=== PATIENT | female | born 1985 | race Caucasian/White ===

== ENCOUNTER 2018-08-31 11:28 | Outpatient (CLI) | payer BC, MEDICAID ==
[~2018-08-31] VITALS: Ht 165.1 cm; Wt 62.6 kg
[2018-08-31 11:56] VITALS: Ht 165.1 cm; Wt 62.6 kg
[2018-08-31 11:57] VITALS: BP 112/60; PULSE 80; RESP 18
[2018-08-31] MEDS ORDERED: PNV11TAB PO (11:59)
--- NOTE | 2018-08-31 14:24 | PN ---
Triage Information Date/Time Reason for visit: s/p fall two days ago no direct trauma to abdomen Weeks of Gestation 28+ /Para 2/1 Diabetes: none Hypertention: none Objective Vital Signs Date Temp Pulse Resp B/P (MAP) Pulse Ox O2 O2 Flow FiO2 Time Delivery Rate 08/31/18 98.6 80 18 112/60 11:57 (77) Heart Rate: 140's Contractions: None Results/Medications Result Diagram: 08/31/18 1241 Results 24 hrs Laboratory Tests Test 08/31/18 12:25 08/31/18 12:41 Fibronectin NEGATIVE White Blood Count 8.9 Red Blood Count 3.38 L Hemoglobin 10.1 L Hematocrit 30.6 L Mean Corpuscular Volume 90.5 Mean Corpuscular Hemoglobin 29.9 Mean Corpuscular Hemoglobin Concent 33.0 Red Cell Distribution Width 13.7 Platelet Count 132 L Mean Platelet Volume 9.6 Immature Granulocytes % 4.900 H Neutrophils % 68.3 Lymphocytes % 18.1 Monocytes % 5.4 Eosinophils % 2.6 Basophils % 0.7 Nucleated Red Blood Cells % 0.0 Immature Granulocytes # 0.430 H Neutrophils # 6.1 Lymphocytes # 1.6 Monocytes # 0.5 Eosinophils # 0.2 Basophils # 0.1 Nucleated Red Blood Cells # 0.0 Kleihauer-Betke Stain 0.0000 Disposition: Discharge Assessment/Plan labs reviewed ultrasound reviewed Questions answered precautions discussed Follow up with provider PIOTR HESS M.D. Aug 31, 2018 14:24
--- NOTE | 2018-08-31 14:48 | TRIAGE ---
OB Triage Datetime Report Generated by CPN: 08/31/2018 14:47 Datetime: 08/31/2018 14:17 Stage of : OB Triage Datetime: 08/31/2018 14:15 Labor Evaluation Frequency: 0 Monitor Mode: External Pattern: Normal: <= 5 Contractions in 10 Minutes Resting Tone [place]: Relaxed Heart Rate FHR Baseline Rate: 135 Monitor Mode: External US Variability: Moderate 6-25 bpm Decelerations: None Category: Category I Pain Assessment Pain Scale: 0 Pain Presence: None/Denies Pain Type: N/A Pain Goal: 3 Pain Relief Measures: Comfort Measures Datetime: 08/31/2018 12:48 Labor Evaluation Frequency: 0 Monitor Mode: External Pattern: Normal: <= 5 Contractions in 10 Minutes Resting Tone [place]: Relaxed Heart Rate FHR Baseline Rate: 135 Monitor Mode: External US Variability: Moderate 6-25 bpm Accelerations: 10X10 Decelerations: None Category: Category I Pain Assessment Pain Scale: 3 Pain Presence: None/Denies Pain Type: N/A Pain Goal: 3 Pain Relief Measures: Comfort Measures Datetime: 08/31/2018 12:14 Stage of : OB Triage Datetime: 08/31/2018 11:48 Stage of : OB Triage Assessment Type: Triage Maternal Assessment Level of Consciousness: Fully Conscious DTR's/Clonus: DTRs 2+; No Clonus Headache: Denies Blurred Vision: No Respiratory Effort: Unlabored; Regular Rhythm; Equal Expansion Breath Sounds, Left: Clear and Equal Breath Sounds, Right: Clear and Equal Nausea/Vomiting: Denies RUQ Epigastric Pain: Denies Facial Edema: None Temperature Route: Axillary Fall Risk Assessment History of Falling: (0) No Secondary Diagnosis: (0) No Ambulatory Aid: (0) Bedrest/Nurse Assist IV Therapy: (0) No Gait: (0) Normal/Bedrest/Immobile Mental Status: (0) Oriented to Own Ability Fall Score: 0 Fall Risk Score Definition: No Risk: No action required Labor Evaluation Frequency: 0 Monitor Mode: External Pattern: Normal: <= 5 Contractions in 10 Minutes Resting Tone [place]: Relaxed Heart Rate FHR Baseline Rate: 135 Monitor Mode: External US Variability: Moderate 6-25 bpm Accelerations: 10X10 Decelerations: None Category: Category I Pain Assessment Pain Scale: 3 Pain Presence: Intermittent Pain Type: Cramping Pain Location: Back Pain Goal: 3 Pain Relief Measures: Comfort Measures Datetime: 08/31/2018 11:47 EGA: 28.4 Datetime: 08/31/2018 11:46 Time of Arrival: 08/31/2018 11:18 Arrived By: Ambulatory Arrived From: Home Chief Complaint: FELL YESTERDAY, ON LEFT SIDE, PAIN ON LEFT SIDE OF ABDOMEN, DENIES BLEEDING, LEAKI NG OR UC'S Movement: Present Contractions: Denies/Absent Rupture of Membranes: Denies Vaginal Bleeding: None Vaginal Discharge: Denies Recent Sexual Intercouse: Denies Abdominal Trauma: Fall Patient Complaints: Back Pain Time Provider Notified: 08/31/2018 12:14 Provider Notified: elodia Initial Plan: MONITOR,kb, typ/screen, bpp, cbc, cl, ffn
== END 2018-08-31 14:35 | disposition home or self-care (01) ==
LOC: OBT 11:28 → EDBD 11:28 → MERGE 11:28 → L-D 11:30 → OBT 14:35
PROVIDERS: ATTEND Obstetrics & Gynecology
DX: O26.893 Other specified pregnancy related conditions, third trimester (principal); Z3A.28 28 weeks gestation of pregnancy; R10.9 Unspecified abdominal pain
CPT/HCPCS: 76817; 76818; 82731; 85025; 85460; 86850; 86900; 86901; Z7500; G0463

== ENCOUNTER 2018-11-14 03:33 | Inpatient (IN) | payer BC, OTHER ==
[~2018-11-14] VITALS: Ht 167.6 cm; Wt 71.7 kg
[~2018-11-14 03:33] MED LIST: PNV11TAB PO
[2018-11-14 04:04] VITALS: BP 117/68; PULSE 93; RESP 16
[2018-11-14] MEDS ORDERED: CALC600T24 PO (04:07)
[2018-11-14] MEDS ORDERED: FERR134T PO (04:07)
[2018-11-14] MEDS ORDERED: LACTATED RINGER'S 1,000 ML IV PRN (04:26)
[2018-11-14] MEDS ORDERED: MISOPROSTOL 200 MCG TAB PR PRN ×2 (04:30→14:30)
[2018-11-14] MEDS ORDERED: IBUPROFEN 600 MG TAB PO PRN (04:30)
[2018-11-14] MEDS ORDERED: LIDOCAINE 1% (MPF) 30 ML INJ INJ PRN (04:30)
[2018-11-14] MEDS ORDERED: CARBOPROST 250 MCG INJ IM PRN ×2 (04:30→14:30)
[2018-11-14] MEDS ORDERED: BUTORPHANOL 2 MG INJ IV PRN ×2 (04:30)
[2018-11-14] MEDS ORDERED: METHYLERGONOVINE 0.2 MG INJ IM PRN ×2 (04:30→14:30)
[2018-11-14] MEDS ORDERED: OXYTOCIN 30 UNITS/LR 500 ML IV PRN ×2 (04:30→14:30)
[2018-11-14] MEDS ORDERED: OXYTOCIN 30 UNITS/LR 500 ML IV SCH ×3 (04:30→14:04)
[2018-11-14] MEDS ORDERED: AMPICILLIN 2 GM/NS (PMX) 100 ML IV ONE (04:30)
[2018-11-14] MEDS: LACTATED RINGER'S 1,000 ML IV SCH ×2 (05:26→12:22)
--- NOTE | 2018-11-14 06:07 | TRIAGE ---
OB Triage Datetime Report Generated by CPN: 11/14/2018 06:06 Datetime: 11/14/2018 05:55 Stage of : Labor Heart Rate FHR Baseline Rate: 145 Monitor Mode: External US FHR Baseline Changes: No Baseline Change Variability: Moderate 6-25 bpm Accelerations: 15X15 Decelerations: None Category: Category I Membrane Status: Intact Datetime: 11/14/2018 05:37 Assessment Type: Admission Assessment Vaginal Bleeding: None Maternal Assessment Level of Consciousness: Fully Conscious DTR's/Clonus: DTRs 2+; No Clonus Headache: Denies Blurred Vision: No Respiratory Effort: Unlabored; Regular Rhythm; Equal Expansion Breath Sounds, Left: Clear and Equal Breath Sounds, Right: Clear and Equal Nausea/Vomiting: Denies RUQ Epigastric Pain: Denies Lower Extremities Edema: None Degree: None Upper Extremities Edema: None Degree: None Facial Edema: None Fall Risk Assessment History of Falling: (0) No Secondary Diagnosis: (0) No Ambulatory Aid: (0) Bedrest/Nurse Assist Gait: (0) Normal/Bedrest/Immobile Mental Status: (0) Oriented to Own Ability Pain Assessment Pain Scale: 7 Pain Presence: Intermittent Pain Type: Contraction Pain Location: Abdomen Pain Goal: 3 Datetime: 11/14/2018 05:26 Stage of : Labor Monitor Mode: External Quality: Moderate Pattern: Normal: <= 5 Contractions in 10 Minutes Resting Tone Tok: Relaxed Heart Rate FHR Baseline Rate: 145 Monitor Mode: External US FHR Baseline Changes: No Baseline Change Variability: Moderate 6-25 bpm Accelerations: 15X15 Decelerations: None Category: Category I Pain Assessment Pain Scale: 8 Pain Presence: Intermittent Pain Type: Contraction Pain Location: Abdomen Datetime: 11/14/2018 04:47 Stage of : Labor Monitor Mode: External Quality: Moderate Pattern: Normal: <= 5 Contractions in 10 Minutes Resting Tone [place]: Relaxed Heart Rate FHR Baseline Rate: 150 Monitor Mode: External US FHR Baseline Changes: No Baseline Change Variability: Moderate 6-25 bpm Accelerations: 15X15 Datetime: 11/14/2018 04:20 Stage of : OB Triage Datetime: 11/14/2018 04:14 Stage of : OB Triage Labor Evaluation Frequency: 4-7 Monitor Mode: External Duration (sec)2399: 60 Quality: Moderate Pattern: Normal: <= 5 Contractions in 10 Minutes Resting Tone Tok: Relaxed Heart Rate FHR Baseline Rate: 145 Monitor Mode: External US FHR Baseline Changes: No Baseline Change Variability: Moderate 6-25 bpm Accelerations: 15X15 Decelerations: None Category: Category I Vaginal Exam Dilatation (cms): 3.5 Effacement (%): 70 Station: -2 Exam By: Debby Dela Cruz Membrane Status: Intact Amniotic Fluid Amount: None Amniotic Fluid Odor: None Vaginal Bleeding: Scant Pool: Negative Cervix, Consistency: Soft Cervix, Position: Posterior Presentation 'A': Cephalic Datetime: 11/14/2018 04:08 Time of Arrival: 11/14/2018 03:24 EGA: 39.2 Arrived By: Wheelchair Arrived From: Home Chief Complaint: c/o ucs and back pain Movement: Present Contractions: Irregular Time Contractions Began: 11/14/2018 01:30 Contractions: q8-10 Rupture of Membranes: Denies Vaginal Bleeding: None Vaginal Discharge: Denies Recent Sexual Intercouse: Denies Abdominal Trauma: Not Applicable Patient Complaints: Contractions; Back Pain Time Provider Notified: 11/14/2018 03:30 Provider Notified: Dr Oconnor Initial Plan: EFM,SVE Datetime: 11/14/2018 03:49 Stage of : OB Triage Datetime: 11/14/2018 03:46 Stage of : OB Triage Maternal Assessment Level of Consciousness: Fully Conscious Headache: Denies Blurred Vision: No Nausea/Vomiting: Denies RUQ Epigastric Pain: Denies Facial Edema: None Monitor Mode: External Heart Rate FHR Baseline Rate: 150 Monitor Mode: External US Pain Assessment Pain Scale: 7 Pain Presence: Intermittent Pain Type: Contraction Pain Location: Abdomen; Back
--- NOTE | 2018-11-14 06:35 | PREAC ---
Date/Time of Note Date/Time of Note DATE: 11/14/18 TIME: 06:35 Anesthesia Eval and Record Evaluation Time Pre-Procedure Interview DATE: 11/14/18 TIME: 06:35 Age 33 Sex female NPO: Other Preoperative diagnosis labor pain Planned procedure epidural Past Medical History Past Medical History: None Surgery & Anesthesia Issues No known issue Meds Anticoagulation: No Beta Nicole within 24 hr: No Reason Beta Nicole not given: Pt. not on B-Nicole Reported Medications Ferrous Sulfate (Iron) 134 Mg Tablet, 134 MG PO DAILY, TAB 11/14/18 Calcium Carbonate* (Calcium Carbonate*) 600 MG Ca Tab, 600 MG PO DAILY, TAB 11/14/18 [id number] () 1 Each Tablet, 1 TAB PO DAILY, TAB 08/31/18 Current Medications Lactated Ringer's 1,000 ml @ 125 mls/hr Q8H IV Last administered on 11/14/18at 05:26; Admin Dose 125 MLS/HR; Start 11/14/18 at 04:26 Ampicillin 50 ml @ 100 mls/hr Q4H IV ; Start 11/14/18 at 08:30 Butorphanol Tartrate (Stadol) 1 mg Q2H PRN IV .PAIN SCALE 1-5; Start 11/14/18 at 04:30 Butorphanol Tartrate (Stadol) 2 mg Q2H PRN IV .PAIN SCALE 6-10; Start 11/14/18 at 04:30 Lidocaine (Xylocaine 1% (Mpf)) 30 ml ONCE PRN INJ .EPISIOTOMY; Start 11/14/18 at 04:30 Oxytocin/Lactated Ringer's 500 ml @ 500 mls/hr ONCE POST IV ; Start 11/14/18 at 04:30 Oxytocin/Lactated Ringer's 500 ml @ 125 mls/hr POST IV ; Start 11/14/18 at 04:30 Ibuprofen (Motrin) 600 mg ONCE PRN PO .PAIN 1-5; Start 11/14/18 at 04:30 Lactated Ringer's 1,000 ml @ 2,000 mls/hr Q30M PRN IV .ANESTHESIA; Start 11/14/18 at 04:26 Oxytocin/Lactated Ringer's 500 ml @ 0 mls/hr ONCE PRN IV .VAGINAL BLEEDING; Start 11/14/18 at 04:30 Methylergonovine Maleate (Methergine) 0.2 mg ONCE PRN IM .VAGINAL BLEEDING; Start 11/14/18 at 04:30 Carboprost Tromethamine (Hemabate) 250 mcg ONCE PRN IM .VAGINAL BLEEDING; Start 11/14/18 at 04:30 Misoprostol (Cytotec) 1,000 mcg ONCE PRN AL .VAGINAL BLEEDING; Start 11/14/18 at 04:30 Meds reviewed: Yes Allergies Coded Allergies: No Known Allergy (Unverified , 11/14/18) Allergies Reviewed: Yes Labs/Studies Labs Reviewed: Reviewed by anesthesiologist Result Diagram: 11/14/18 0510 Laboratory Tests 11/14/18 05:10 Blood Bank Test 11/14/18 05:10 Antibody Screen NEGATIVE Blood Type O POSITIVE Rh Immune Globulin Candidate NO test: N/A Pre-procedure Exam Last vitals Vital Signs Date Temp Pulse Resp B/P (MAP) Pulse Ox O2 O2 Flow FiO2 Time Delivery Rate 11/14/18 98.2 93 16 117/68 Room Air 04:04 (84) Airway: Adequate mouth opening, Adequate thyromental dist Mallampati: Mallampati III Teeth: Normal Lung: Normal Heart: Normal ASA Physical Status ASA physical status: 2 Emergency: None Pre-operative Attestations Prior to commencing anesthesia and surgery, the patient was re-evaluated, there was verification of: *The patient's identity *The results of appropriate recent lab work and preoperative vital signs *The above evaluation not changing prior to induction *Anesthetic plan, risk benefits, alternative and complications discussed with patient/family; questions answered; patient/family understands, accepts and w ishes to proceed. PADMA BOCANEGRA DO Nov 14, 2018 06:35
[2018-11-14] MEDS ORDERED: FENTAnyl 2MCG/ML-ROPIV 0.2% 100 ML ONE (06:37)
--- NOTE | 2018-11-14 06:37 | HP ---
Date/Time of Note Date/Time of Note DATE: 11/14/18 TIME: 06:34 OB - History Hx of Present Free Text/Dictation c/o contractionts no leakege of fluid : 3 Para: 1 Care: Good Care Obstetrical Complications: None Medical Complications: None Past Family/Social History * Past Medical, Surgical, Family and Obstetric Histories reviewed from chart. OB Admission Exam Vital Signs Vital Signs Vital Signs Date Temp Pulse Resp B/P (MAP) Pulse Ox O2 O2 Flow FiO2 Time Delivery Rate 11/14/18 98.2 93 16 117/68 Room Air 04:04 (84) Physical Exam Heart: Rhythm Normal Lungs: Clear Abdomen: WNL Extremities: Normal Cervical Dilatation: 3cm Effacement: 75% Station: 0 Membranes: Intact Accelerations: Accelerations Present Contractions on Admission: 6-10 Minutes Apart Intensity: Moderate Last 72 hours Lab Results CBC & BMP 11/14/18 05:10 OB Assessment/Plan Reason for admission: active labor Plan: Other (US for estimated waight, IV antibiotic for GBBS, admit to labor and delivery unit) STEFF GILLESPIE MD Nov 14, 2018 06:37
[2018-11-14] MEDS ORDERED: NALOXONE (0.4 MG/ML) INJ IV PRN (07:00)
[2018-11-14] MEDS ORDERED: FENTAnyl 2MCG/ML-ROPIV 0.2% 100 ML BAG EPI SCH (07:00)
[2018-11-14] MEDS: AMPICILLIN 1 GM/NS (PMX) 50 ML IV SCH ×2 (08:36→12:22)
--- NOTE | 2018-11-14 14:03 | LDN ---
Date/Time of Note Date/Time of Note DATE: 11/14/18 TIME: 14:01 Delivery Summary Weeks of Gestation Term gestation Placenta Delivered: Spontaneously Meconium: none Episiotomy: No Laceration repair: First-degree laceration repaired with 2-0 Vicryl suture Anesthesia type: Epidural Estimated blood loss: 200 Sponge & Needle done & correct: Yes All needle counts correct: Yes Any foreign bodies felt in the: No Infant Delivery Information Sex Sex: male Apgars 1 Minute: 9 5 Minute: 9 Suctioning Nose & mouth suctioned at estela: Yes Delee suction performed: No Umbilical Cord Umbilical cord with: 3 Vessels Cord presentations: no nuchal cord Cord Blood was obtained: Yes Mother & Baby Disposition Disposition Baby's weight 9 pounds 4 ounces/ 4185 g Mom & Baby to Maternity; Good: Yes Baby to NICU: No Copies To: CC: JOHNY TRONCOSO BAHAREH MD Nov 14, 2018 14:03
[2018-11-14] MEDS ORDERED: LACTATED RINGER'S 1,000 ML IV* SCH (14:04)
[2018-11-14] MEDS ORDERED: SENNA/DOCUSATE NA (8.6MG/50MG) TAB PO PRN (14:30)
[2018-11-14] MEDS ORDERED: DIBUCAINE 1% 30 GM OINT TOP PRN (14:30)
[2018-11-14] MEDS ORDERED: ACETAMINOPHEN 325 MG TAB PO PRN ×2 (14:30)
[2018-11-14] MEDS ORDERED: MAGNESIUM HYDROXIDE 30ML CUP PO PRN (14:30)
[2018-11-14] MEDS ORDERED: ONDANSETRON 4 MG INJ IV PRN (14:30)
[2018-11-14 17:05] VITALS: BP 122/79; PULSE 60; RESP 18
[2018-11-14 19:30] VITALS: BP 136/73; PULSE 53; RESP 19
[2018-11-14] MEDS: LANOLIN HPA 1 PKT TOP PRN (21:42)
[2018-11-14] MEDS: WITCH HAZEL/GLYCERIN PAD PR PRN (21:42)
[2018-11-14] MEDS: BENZOCAINE 20% 56 ML SPRAY TOP PRN (21:43)
[2018-11-15] VITALS: BP 115/74; PULSE 63; RESP 18
[2018-11-15] MEDS: IBUPROFEN 600 MG TAB PO PRN ×4 (00:53→20:23)
[2018-11-15 04:00] VITALS: BP 113/77; PULSE 68; RESP 19
[2018-11-15 10:00] VITALS: BP 110/70; PULSE 79; RESP 16
[2018-11-15] MEDS: HYDROCODONE/APAP (5/325) TAB PO PRN ×2 (13:49→23:06)
[2018-11-15 15:30] VITALS: BP 115/72; PULSE 83; RESP 18
--- NOTE | 2018-11-15 15:37 | DS ---
Date/Time of Note Date/Time of Note DATE: 11/15/18 TIME: 15:37 Obstetrical Discharge Record Final Diagnosis Final Diagnosis: Term delivered Other Final Diagnosis 33-year-old 3 para 1-0-1-1 s/p normal vaginal delivery. PPD#1 - AF, VSS - Baby is doing well, at bed side. She is bonding well - Contraception methods with R/B/A/FR discussed - Continue care - Discharge home tomorrow - Rx and instruction given - Follow up in 2 and 6 weeks at clinic Vaginal Delivery Obstetrical Delivery: Spontaneous Condition on Discharge Physical Assessment Voiding: Yes Bowel Movement: Yes Breast: Soft, non-tender Fundus: Firm Calf Tenderness: No Patient Condition: Stable JOHNY TRONCOSO Nov 15, 2018 15:37
--- NOTE | 2018-11-15 15:37 | PN ---
Date/Time of Note Date/Time of Note DATE: 11/15/18 TIME: 15:35 OB Subjective Subjective Subjective PPD# 1 Patient is doing well. She denies nausea, vomiting, shortness of breath, chest pain, headache. She has been ambulating without difficulty, tolerating regular diet. Pain is well controlled on current medications OB Objective Objective Objective VS - Last 72 Hours, by Label Date Temp Pulse Resp B/P (MAP) Pulse Ox O2 O2 Flow FiO2 Time Delivery Rate 11/15/18 98.1 79 16 110/70 10:00 (83) 11/15/18 98.4 68 19 113/77 Room Air 04:00 (89) 11/15/18 98.6 63 18 115/74 Room Air 00:00 (88) 11/14/18 98.4 53 19 136/73 Room Air 19:30 (94) 11/14/18 98.7 60 18 122/79 Room Air 17:05 (93) 11/14/18 98.1 16:46 11/14/18 98.2 93 16 117/68 Room Air 04:04 (84) General: AAO X 3, comfortable, NAD, appropriate mood and affect. ABD: +BS. Soft, non-tender. Uterus 2 cm below umbilicus Flank: No CVA tenderness (B/L) LE: Mild edema. No clubbing, cyanosis, thigh or calf tenderness (B/L). Homans 'sign is negative Laboratory Tests Test 11/14/18 05:10 11/15/18 06:18 White Blood Count 8.4 10^3/ul 10.9 10^3/ul Red Blood Count 3.93 10^6/ul 4.15 10^6/ul Hemoglobin 11.8 g/dl 12.5 g/dl Hematocrit 35.4 % 36.8 % Mean Corpuscular Volume 90.1 fl 88.7 fl Mean Corpuscular Hemoglobin 30.0 pg 30.1 pg Mean Corpuscular Hemoglobin Concent 33.3 g/dl 34.0 g/dl Red Cell Distribution Width 14.1 % 14.1 % Platelet Count 91 10^3/UL 92 10^3/UL Mean Platelet Volume 10.5 fl 10.1 fl Immature Granulocytes % 3.800 % 1.700 % Neutrophils % 72.4 % 77.2 % Segmented Neutrophils % (Manual) 69 % Band Neutrophils % (Manual) 11 % Lymphocytes % 13.5 % 11.1 % Lymphocytes % (Manual) 14 % Reactive Lymphocytes % (Manual) 1 % Monocytes % 6.4 % 7.1 % Eosinophils % 3.2 % 2.4 % Eosinophils % (Manual) 5 % Basophils % 0.7 % 0.5 % Nucleated Red Blood Cells % 0.0 /100WBC 0.0 /100WBC Immature Granulocytes # 0.320 10^3/ul 0.190 10^3/ul Neutrophils # 6.1 10^3/ul 8.4 10^3/ul Neutrophils # (Manual) 5.9 10^3/ul Band Neutrophils # 0.9 10^3/ul Lymphocytes (Manual) 1.1 10^3/ul Lymphocytes # 1.1 10^3/ul 1.2 10^3/ul Reactive Lymphocytes # 0.0 10^3/ul Monocytes # 0.5 10^3/ul 0.8 10^3/ul Eosinophils # 0.3 10^3/ul 0.3 10^3/ul Basophils # 0.1 10^3/ul 0.1 10^3/ul Nucleated Red Blood Cells # 0.0 10^3/ul 0.0 10^3/ul Platelet Estimate DECREASED Poikilocytosis 1+ Anisocytosis 1+ Microcytosis 1+ Prothrombin Time 12.5 Sec Prothrombin Time Ratio 1.0 INR International Normalized Ratio 0.92 Activated Partial Thromboplast Time 28.1 Sec Rapid Plasma Reagin NONREACTIVE Hepatitis B Surface Antigen NEGATIVE OB Assessment/Plan Other plan: 33-year-old 3 para 1-0-1-1 s/p normal vaginal delivery. PPD#1 - AF, VSS - Baby is doing well, at bed side. She is bonding well - Contraception methods with R/B/A/FR discussed - Continue care - Discharge home tomorrow - Rx and instruction given - Follow up in 2 and 6 weeks at clinic JOHNY TRONCOSO Nov 15, 2018 15:37
[2018-11-15 19:30] VITALS: BP 111/77; PULSE 78; RESP 19
[2018-11-15] MEDS: WITCH HAZEL/GLYCERIN PAD PR PRN (20:22)
[2018-11-15] MEDS: BENZOCAINE 20% 56 ML SPRAY TOP PRN (20:22)
[2018-11-15] MEDS: LANOLIN HPA 1 PKT TOP PRN (20:23)
[2018-11-16 03:29] VITALS: BP 105/64; PULSE 68; RESP 18
[2018-11-16] MEDS: IBUPROFEN 600 MG TAB PO PRN (05:28)
[2018-11-16 07:50] VITALS: BP 103/62; PULSE 70; RESP 18
[2018-11-16 08:00] VITALS: BP 102/59; PULSE 70; RESP 18
[2018-11-16] MEDS ORDERED: DIPHTH/TET/ACEL PERTUSS (ADULT) 0.5 ML VIAL IM* ONE (09:00)
[2018-11-16] MEDS: LANOLIN HPA 1 PKT TOP PRN (09:43)
--- NOTE | 2018-11-17 14:46 | DELSUM ---
Delivery Summary A-C Datetime Report Generated by CPN: 11/17/2018 14:46 DELIVERY PERSONNEL Enterprise Analyst: Cubil, Ella MATERNAL INFORMATION Delivery Anesthesia: Epidural Medications in Delivery: pitocin Delivery QBL (ml): 200 Placenta Cultured: No Maternal Complications: None LABOR SUMMARY EDC: 11/19/2018 00:00 No. Babies in Womb: 1 Attempted: No Labor Anesthesia: Epidural LABOR INFORMATION Reason for Induction: Not Applicable Onset of Labor: 11/14/2018 01:30 Complete Dilatation: 11/14/2018 13:20 Oxytocin: N/A Group B Beta Strep: Positive Antibiotics # of Doses: 3 Antibiotics Time of Last Dose: 11/14/2018 13:30 Steroids Given: None Reason Steroids Not Administered: Not Applicable MEMBRANES Membranes Rupture Method: Spontaneous Rupture of Membranes: 11/14/2018 12:30 Length of Rupture (hr): 1.03 Amniotic Fluid Color: Clear Amniotic Fluid Amount: Moderate Amniotic Fluid Odor: None STAGES OF LABOR Stage 1 hr: 11 Stage 1 min: 50 Stage 2 hr: 0 Stage 2 min: 12 Stage 3 hr: 0 Stage 3 min: 3 Total Time in Labor hr: 12 Total Time in Labor min: 5 VAGINAL DELIVERY Episiotomy: None Laceration Extension: First Degree Laceration Type: Perineal Laceration Repair: Yes Initial Vag Sponge Count: 10 Final Vag Sponge Count: 10 Initial Vag Sharps Count: 1 Final Vag Sharps Count: 1 Sponge Count Correct: Yes; Vaginal Sweep Performed Sharps Count Correct: Yes BABY A INFORMATION Delivery Date/Time: 11/14/2018 13:32 Method of Delivery: Vaginal Born in Route : No : N/A Forceps: N/A Vacuum Extraction: N/A Shoulder Dystocia : N/A SHOULDER DYSTOCIA BABY A Infant Delivery Date/Time: 11/14/2018 13:32 PRESENTATION/POSITION BABY A Presentation: Cephalic Cephalic Presentation: Vertex Vertex Position: Left Occipital Anterior Breech Presentation: N/A PLACENTA INFORMATION BABY A Placenta Delivery Time : 11/14/2018 13:35 Placenta Method of Delivery: Spontaneous Placenta Status: Delivered SCORES BABY A Heart Rate 1 min: >100 bpm Resp Effort 1 min: Good Cry Reflex Irritability 1 min: Cough/Sneeze/Pulls Away Muscle Tone 1 min: Active Motion Color 1 min: Body [place], Extremit Blue Resuscitation Effort 1 min: Tactile Stimulation SCORE 1 MIN: 9 Heart Rate 5 min: >100 bpm Resp Effort 5 min: Good Cry Reflex Irritability 5 min: Cough/Sneeze/Pulls Away Muscle Tone 5 min: Active Motion Color 5 min: Body [place], Extremit Blue Resuscitation Effort 5 min: Tactile Stimulation SCORE 5 MIN: 9 INFANT INFORMATION BABY A Gestational Age at Delivery: 39.2 Gestational Status: Full Term- 39- 40.6 Weeks Infant Outcome : Liveborn Infant Condition : Stable Infant Sex: Male IDENTIFICATION/MEDS BABY A ID Band Number: [id number] ID Band Location: Right Leg; Right Arm Sensor Applied: Yes Sensor Number: [id number] Sensor Location : Cord Clamp Vitamin K Given : Not Given Erythromycin Given: Not Given WEIGHT/LENGTH BABY A Birthweight (gm): 4185 Weight (lb): 9 Weight (oz): 4 Length (in): 20.50 Length (cm): 52.07 CORD INFORMATION BABY A No. Cord Vessels: 3 Nuchal Cord : N/A Cord Blood Taken: Yes Suction: Mouth; Nose ASSESSMENT BABY A Infant Complications: None Physical Findings at Delivery: Within Normal Limits Mine Inspector [employer] Called : No Care By: Danielle steel Transferred To: Remains with Mother
== END 2018-11-16 14:45 | disposition home or self-care (01) | DRG 807 ==
LOC: OBT 03:33 → L-D 03:33 → OBT 04:20 → L-D 04:20 → PP1 17:04
PROVIDERS: ADMIT Obstetrics & Gynecology; ATTEND Obstetrics & Gynecology
PROC: 10E0XZZ Delivery of Products of Conception, External Approach (ICD-10-PCS; principal; 2018-11-14)
PROC: 0HQ9XZZ Repair Perineum Skin, External Approach (ICD-10-PCS; 2018-11-14)
DX: O70.0 First degree perineal laceration during delivery (principal); Z37.0 Single live birth; Z3A.39 39 weeks gestation of pregnancy; Z23 Encounter for immunization
CPT/HCPCS: 62322; 76815; 85025; 85610; 85730; 86592; 86850; 86900; 86901; 87340; 90715; G0463; J0290; J2210; J2590; J3010; J7120

== ENCOUNTER 2019-01-01 23:46 | Emergency (ER) | payer BC ==
[~2019-01-01] VITALS: Ht 167.6 cm; Wt 60.0 kg
[~2019-01-01 23:46] MED LIST changes: +ACET500C5 PO; +CALC600T24 PO; +FERR134T PO
[2019-01-01 23:51] VITALS: Ht 167.6 cm; Wt 60.0 kg
--- NOTE | 2019-01-02 02:06 | ERD ---
ER Documentation Chief Complaint Chief Complaint Lower abdominal pain started today denies n/v diarrhea HPI This is a 33-year-old female who presents here in emergency department with complaints of pelvic pain that started today. Patient is insisting pelvic ultrasound. LMP: Unknown. Stated that she had a normal vaginal delivery November 14, 2018. A0. Denies headache, head injury, loss of consciousness, dizziness, neck pain, neck stiffness, throat pain, difficulty swallowing, difficulty breathing lying flat, shoulder pain, chest pain, back pain, abdominal pain, nausea, vomiting, constipation, diarrhea, urinary symptoms, or possibility being , loss of bowel and bladder control, trauma, injury, falls, difficulty walking due to pain, numbness or tingling sensation, calf pain, recent travel, recent major surgery in the last 3 weeks, calf pain, recent long travel, recent exposure to any illness, recent antibiotic use in the last 3 months, fever, chills, seizures. Past medical history: Denies. Surgical history: Denies. Social: Denies smoking, use of alcoholic beverages, use of illegal drugs. ROS All systems reviewed and are negative except as per history of present illness. Medications Home Meds Active Scripts Acetaminophen* (Tylophen*) 500 Mg Capsule, 1 CAP PO Q6H PRN for PAIN AND OR ELEVATED TEMP, #20 CAP Prov:SAGAR WYNNE 01/02/19 Reported Medications Ferrous Sulfate (Iron) 134 Mg Tablet, 134 MG PO DAILY, TAB 11/14/18 Calcium Carbonate* (Calcium Carbonate*) 600 MG Ca Tab, 600 MG PO DAILY, TAB 11/14/18 [id number] ( ) 1 Each Tablet, 1 TAB PO DAILY, TAB 08/31/18 Allergies Allergies: Coded Allergies: No Known Allergy (Unverified , 11/14/18) PMhx/Soc Medical and Surgical Hx: pt denies Medical Hx, pt denies Surgical Hx Hx Alcohol Use: No Hx Substance Use: No Hx Tobacco Use: No Smoking Status: Never smoker Physical Exam Vitals Vital Signs Date Temp Pulse Resp B/P (MAP) Pulse Ox O2 O2 Flow FiO2 Time Delivery Rate 01/02/19 98.0 60 18 117/74 99 05:13 (88) 01/01/19 97.8 77 18 125/82 99 23:51 (96) Physical Exam Const: No acute distress Head: Atraumatic Eyes: Normal Conjunctiva. ENT: Normal External Ears, Nose and Mouth. Neck: Full range of motion. No meningismus. Resp: Clear to auscultation bilaterally Cardio: Regular rate and rhythm, no murmurs Abd: Soft, non tender, non distended. Normal bowel sounds. Negative Traylor sign. Negative Jolley sign (heel jar test). Negative psoas sign. Negative Rovsing sign. Able to jump 10 times without developing lower abdominal pain. No CVA tenderness. Ambulatory with steady gait and without pain to abdomen. Skin: No petechiae or rashes. Color appears normal for ethnicity. No skin tenting. No signs of severe dehydration. Back: No midline or flank tenderness Ext: No cyanosis, or edema Neur: Awake and alert. No neurological deficits. Psych: Normal Mood and Affect Result Diagram: 01/02/1921401/02/19214 Results 24 hrs Laboratory Tests Test 01/02/19 02:15 White Blood Count 7.4 10^3/ul Red Blood Count 4.56 10^6/ul Hemoglobin 13.2 g/dl Hematocrit 40.9 % Mean Corpuscular Volume 89.7 fl Mean Corpuscular Hemoglobin 28.9 pg Mean Corpuscular Hemoglobin Concent 32.3 g/dl Red Cell Distribution Width 13.2 % Platelet Count 154 10^3/UL Mean Platelet Volume 9.8 fl Immature Granulocytes % 0.400 % Neutrophils % 57.0 % Lymphocytes % 30.5 % Monocytes % 6.1 % Eosinophils % 5.5 % Basophils % 0.5 % Nucleated Red Blood Cells % 0.0 /100WBC Immature Granulocytes # 0.030 10^3/ul Neutrophils # 4.2 10^3/ul Lymphocytes # 2.3 10^3/ul Monocytes # 0.5 10^3/ul Eosinophils # 0.4 10^3/ul Basophils # 0.0 10^3/ul Nucleated Red Blood Cells # 0.0 10^3/ul Urine Color YELLOW Urine Clarity SLIGHTLY CLOUDY Urine pH 5.0 Urine Specific [place] 1.014 Urine Ketones NEGATIVE mg/dL Urine Nitrite NEGATIVE mg/dL Urine Bilirubin NEGATIVE mg/dL Urine Urobilinogen NEGATIVE mg/dL Urine Leukocyte Esterase NEGATIVE Lela/ul Urine Microscopic RBC 0 /HPF Urine Microscopic WBC 3 /HPF Urine Squamous Epithelial Cells FEW /HPF Urine Bacteria FEW /HPF Urine Hemoglobin NEGATIVE mg/dL Urine Glucose NEGATIVE mg/dL Urine Total Protein NEGATIVE mg/dl Urine Test NEGATIVE Sodium Level 141 mmol/L Potassium Level 4.0 mmol/L Chloride Level 106 mmol/L Carbon Dioxide Level 27 mmol/L Anion Gap 8 Blood Urea Nitrogen 12 mg/dl Creatinine 0.59 mg/dl Est Glomerular Filtrat Rate mL/min > 60 mL/min Glucose Level 91 mg/dl Calcium Level 9.5 mg/dl Total Bilirubin 0.5 mg/dl Direct Bilirubin 0.00 mg/dl Indirect Bilirubin 0.5 mg/dl Aspartate Amino Transf (AST/SGOT) 27 IU/L Alanine Aminotransferase (ALT/SGPT) 31 IU/L Alkaline Phosphatase 93 IU/L Total Protein 8.7 g/dl Albumin 4.7 g/dl Globulin 4.00 g/dl Albumin/Globulin Ratio 1.17 Amylase Level 106 U/L Lipase 152 U/L Procedures/MDM Diagnostic tests: POC urine : Negative. Urinalysis: Reviewed. Culture urine: Sent. Blood works: Reviewed. Pelvic ultrasound: Small left ovarian follicular cyst. Mild pelvic free fluid. Treatment: Refuses. Re-evaluation: No episode of emesis in the emergency department. Denies abdominal pain, pelvic pain, vaginal bleeding. Negative Traylor sign. Negative John sign (heel jar test). Negative psoas sign. Negative Rovsing sign. No CVA tenderness. Able to jump 10 times without developing lower abdominal pain. Stated that she feels much better at this time and that she is ready to go home. Stated that she is comfortable to go home. Differential diagnosis I have low suspicion for sepsis, pancreatitis, cholecystitis, diverticulitis, bowel obstruction, appendicitis, ruptured appendicitis, ovarian torsion, ovarian cyst rupture, hemorrhaging. Final diagnosis: Pelvic pain. Ovarian cyst. Prescription: Tylenol. Follow-up with PCP in the next 24-48 hours. Follow-up with quality assurance nurse in the next 24 to 48 hours. Come back here in the emergency department for any new symptoms or any worsening symptoms. All questions and concerns were answered. Patient and family members verbalized understanding and agreed with plan of care. Hemodynamically stable on discharge. Departure Diagnosis: Primary Impression: Pelvic pain Additional Impression: Ovarian follicular cyst Condition: Stable Additional Instructions: Follow-up with PCP in the next 24-48 hours. Follow-up with quality assurance nurse in the next 24 to 48 hours. Come back here in the emergency department for any new symptoms or any worsening symptoms. SAGAR WYNNE Jan 02, 2019 02:06
[2019-01-02 05:13] VITALS: BP 117/74; PULSE 60; RESP 18
== END 2019-01-02 05:14 | disposition home or self-care (01) ==
LOC: FTE 23:46
DX: N83.02 Follicular cyst of left ovary (principal)
CPT/HCPCS: 36415; 76830; 76856; 80053; 81001; 82150; 83690; 84703; 85025; 87086; Z7502; 81003